=== PATIENT | female | born 1935 | race Caucasian/White ===

== ENCOUNTER → 2020-04-23 15:02 | Outpatient (ROUT) | payer MEDICARE, SELFPAY | PROVIDERS: PCP Internal Medicine; Visit Provider Internal Medicine | DX: N39.0 Urinary tract infection, site not specified (principal) | CPT/HCPCS: 87077; 87086; 87186 ==

== ENCOUNTER → 2023-03-30 10:59 | Outpatient (CLI) | payer MEDICARE, SELFPAY ==
--- NOTE | 2023-03-30 | DI.RAD.S_ITS ---
Bone Density Report Name: ANY BLAKE Age: 87 Sex: Female Ethnicity: White Date of : 1935 Indication: postmenopausal; screening for osteoporosis; parental hip fracture; Referring Provider: GT STERLING Study: Bone densitometry was performed. Exam Date: March 30, 2023 Accession number: [id number] Bone Density: Region BMD T-score Z-score Classification AP Spine(L2, L3, L4) 1.183 0.9 3.9 Normal Femoral Neck (Left) 0.689 -1.4 1.1 Osteopenia Total Hip (Left) 0.750 -1.6 0.8 Osteopenia Femoral Neck (Right) 0.672 -1.6 0.9 Osteopenia Total Hip (Right) 0.743 -1.6 0.7 Osteopenia Total Hip Mean 0.746 -1.6 0.8 Osteopenia World Health Organization criteria for BMD impression classify patients as: Normal (T-score at or above -1.0), Osteopenia (T-score between -1.0 and -2.5), or Osteoporosis (T-score at or below -2.5). 10-year Fracture Risk(1): Major Osteoporotic Fracture 22% Hip Fracture 14% Reported Risk Factors: [place] (), Neck BMD=0.672, BMI=21.0, parental fracture (1) FRAX(R) Version 3.08. Fracture probability calculated for an untreated patient. Fracture probability may be lower if the patient has received treatment. Impression: The patient has low bone mass, based on the Left Total Hip T-score. The patient has an estimated ten-year risk of hip fracture of 14% and an estimated ten-year risk of major fracture of 22%, based on the WHO FRAX algorithm. The patient has risk factors, including: parental hip fracture. Discussion: BONE DENSITY IS LOW AT ONE OR MORE SKELETAL SITES. THE PATIENT'S BMD AND CLINICAL RISK FACTORS CONTRIBUTE TO THIS PATIENT'S HIGH RISK OF FRACTURE. This patient's lowest T-score is low at one or more skeletal sites. It meets the World Health Organization's (WHO) criteria for low bone mass (T-score between -1.0 and -2.5). The patient's 10-year risk of hip fracture and 10 year risk of a major osteoporotic fracture as calculated by FRAX exceeds the threshold where pharmacological therapy is recommended by the National Osteoporosis Foundation (NOF). However, all treatment decisions require clinical judgment and consideration of individual patient factors, including patient preferences, comorbidities, previous drug use, risk factors not captured in the FRAX model (e.g., frailty, falls, vitamin D deficiency, increased bone turnover, interval significant decline in bone density) and possible under or overestimation of fracture risk by FRAX. The patient should follow a healthful lifestyle (good nutrition with adequate calcium and vitamin D, and appropriate weight-bearing exercise). Follow-Up: Consider a repeat BMD and Vertebral Fracture Assessment (VFA) exam in 2 years or sooner if medically necessary, to reassess this patient's status. Reported by: AGGIE MCCULLOUGH M.D. on 03/30/2023 11:53:00 AM.
== END ==
PROVIDERS: PCP Student in an Organized Health Care Education/Training Program; Referring Provider Student in an Organized Health Care Education/Training Program; Visit Provider Student in an Organized Health Care Education/Training Program
DX: M85.852 Other specified disorders of bone density and structure, left thigh (principal); N95.9 Unspecified menopausal and perimenopausal disorder; Z85.3 Personal history of malignant neoplasm of breast
CPT/HCPCS: 77080

== ENCOUNTER 2023-07-26 18:05 | Emergency (ER) | payer MEDICARE, SELFPAY ==
--- NOTE | 2023-07-26 | DI.RAD.S_ITS ---
PROCEDURE: XR SHOULDER LT MIN 2V INDICATIONS: fall TECHNIQUE: 2 views of the shoulder were acquired. COMPARISON: None. FINDINGS: Bones: Suspect 3 part fracture of the humeral surgical neck. Soft tissues: No suspicious soft tissue calcifications. IMPRESSION: Neer 3-part fracture of the humeral surgical neck. Dictated by: Orville Street M.D. on 07/26/2023 at 18:57 Approved by: Orville Street M.D. on 07/26/2023 at 18:58
[2023-07-26 18:15] VITALS: BP 175/79; PULSE 64; RESP 18; TEMP 36.9; O2SAT 100; BMI 21.9
--- NOTE | 2023-07-26 18:21 | DI.RAD.S_ITS ---
PROCEDURE: XR HUMERUS LT 2V INDICATIONS: GLF, pain, deformity TECHNIQUE: 2 views of the humerus were acquired. COMPARISON: None. FINDINGS: Bones: Foreshortened fracture of the humeral neck. Soft tissues: No suspicious soft tissue calcifications. IMPRESSION: Foreshortened fracture of the humeral neck. Dictated by: Orville Street M.D. on 07/26/2023 at 18:56 Approved by: Orville Street M.D. on 07/26/2023 at 18:57
--- NOTE | 2023-07-26 19:01 | ED.GENADULT ---
HPI - General Adult General Chief complaint: Extremity Injury, Upper Stated complaint: L arm/Shoulder, Hummerus, Fall from wheelchair Time Seen by Provider: 07/26/23 18:17 Source: patient and EMS Mode of arrival: EMS History of Present Illness HPI narrative: Patient is an 87-year-old female who is here for evaluation of a left arm/shoulder discomfort. The stated complaint states she fell from a wheelchair however what actually happened is that she was outside trying to feed some birds when she slipped on the snow and ice. She landed on her left shoulder and left hip. She states she did not hit her head. She had no loss of consciousness. She could not get up because of the pain that she was having in her shoulder. Family members came out with a wheelchair or try to help her up and they had difficulty doing so because of her discomfort. She arrived by EMS with a sling in place. Patient is on anticoagulation but again did not hit her head. Related Data Previous Rx's Medication Instructions Recorded hydrocodone 5 mg-acetaminophen 325 1 tab PO Q4-6H PRN pain #20 tabs 07/26/23 mg tablet ondansetron 4 mg disintegrating 4 mg PO Q6H PRN nausea and 07/26/23 tablet vomiting #14 tabs Allergies Allergy/AdvReac Type Severity Reaction Status Date / Time oxycodone [OXYCODONE] AdvReac Unknown VOMITING Verified 07/26/23 19:22 Review of Systems Constitutional Constitutional: Reports system reviewed and no additional complaints, except as documented Musculoskeletal Musculoskeletal: Reports system reviewed and no additional complaints, except as documented Integumentary/Breasts Skin/Breast: Reports system reviewed and no additional complaints, except as documented Neurologic Neurologic: Reports system reviewed and no additional complaints, except as documented Hematologic/Lymphatic On Anticoagulants: Yes Patient History Surgical History (Updated 11/06/17 @ 05:25 by Conversion Provider) Status post appendectomy Status post partial mastectomy Social History Smoking Status: Never smoker Smoking Status: Never smoker alcohol intake frequency: holidays/special occasions only Alcohol type: beer Substance Use Type: does not use Exam Initial Vital Signs Initial Vital Signs: Vital Signs Temperature 98.5 F 07/26/23 18:15 Pulse Rate 64 07/26/23 18:15 Respiratory Rate 18 07/26/23 18:15 Blood Pressure 175/79 H 07/26/23 18:15 Pulse Oximetry 100 07/26/23 18:15 Oxygen Delivery Method Room Air 07/26/23 18:15 Const General: cooperative, comfortable and No ill appearing HENMT Head: normal to inspection and normocephalic Resp Effort & Inspection: normal respiratory effort Cardio Rate: regular rate Pulses: radial pulses present on the left Skin General: no rashes or lesions noted Neuro General: patient alert, patient awake and moves all extremities Extrem Other: Patient has significant discomfort with palpation of the left shoulder. Her left elbow and wrist unremarkable. She also has discomfort with palpation of the left hemipelvis but her left knee and left ankle unremarkable. Right-sided is unremarkable. Procedures Orthopedic Splinting/Casting Injury #1: Side: left Upper Extremity Injury Location: shoulder Upper Extremity Immobilizer: sling/shoulder immobilizer Post splinting neuro exam: intact Post splinting vascular exam: intact Placed by: Nursing Scores Nexus Score for C-Spine Focal Neurologic deficit present: No Midline spinal tenderness present: No Altered level of conciousness present: No Intoxication present: No Distracting Injury Present: No Nexus Criteria for C-spine: 0 Course Orders Ordered: ED Orders 07/26/23 18:21 XR humerus LT 2V Stat 07/26/23 19:08 XR hip w pel if done LT 2V Stat Discontinued Medications Hydrocodone Bitart/Acetaminophen (Hydrocodone/Acet 5/325 Tablet) 1 tab PO NOW ONE Stop: 07/26/23 19:09 Last Admin: 07/26/23 19:35 Dose: 1 tab Documented By: GIACOMO Hydrocodone Bitart/Acetaminophen (Hydrocodone/Acet 5/325 Prepack) 1 bottle MISC DIRECTED ONE Stop: 07/26/23 19:57 Last Admin: 07/26/23 20:16 Dose: 1 bottle Documented By: GIACOMO Ondansetron HCl (Ondansetron 4 Mg Odt Prepack) 1 bottle MISC DIRECTED ONE Stop: 07/26/23 19:57 Last Admin: 07/26/23 20:16 Dose: 1 bottle Documented By: GIACOMO Vital Signs Vital signs: Vital Signs - 8 hr 07/26/23 18:15 07/26/23 19:33 07/26/23 19:38 Temperature 98.5 F Pulse Rate 64 68 64 Pulse Rate [Left Radial] Respiratory Rate 18 16 Blood Pressure 175/79 H 144/69 H Pulse Oximetry 100 97 99 Oxygen Delivery Method Room Air Room Air Room Air 07/26/23 19:46 Temperature Pulse Rate Pulse Rate [Left Radial] 72 Respiratory Rate Blood Pressure Pulse Oximetry Oxygen Delivery Method Medical Decision Making Imaging Data Extremity x-ray #1: Radiologist's Impression: PROCEDURE: XR HUMERUS LT 2V INDICATIONS: GLF, pain, deformity TECHNIQUE: 2 views of the humerus were acquired. COMPARISON: None. FINDINGS: Bones: Foreshortened fracture of the humeral neck. Soft tissues: No suspicious soft tissue calcifications. IMPRESSION: Foreshortened fracture of the humeral neck. Extremity x-ray #2: Radiologist's Impression: PROCEDURE: XR SHOULDER LT MIN 2V INDICATIONS: fall TECHNIQUE: 2 views of the shoulder were acquired. COMPARISON: None. FINDINGS: Bones: Suspect 3 part fracture of the humeral surgical neck. Soft tissues: No suspicious soft tissue calcifications. IMPRESSION: Neer 3-part fracture of the humeral surgical neck. Extremity x-ray #3: Radiologist's Impression: PROCEDURE: XR HIP W PEL IF DONE LT 2V INDICATIONS: L hip pain after fall TECHNIQUE: AP pelvis with lateral view(s) of the left hip(s). COMPARISON: None. FINDINGS: Bones: No fractures or dislocations. Pelvic ring appears intact. No suspicious bony lesions. Soft tissues: The visualized bowel gas pattern is normal. No suspicious soft tissue calcifications. IMPRESSION: No displaced fracture. If there remains a high clinical concern or the patient cannot bear weight, consider cross-sectional imaging to exclude an occult fracture MDM Narrative Medical decision making narrative: Shoulder x-ray does show left proximal humerus fracture. This does correspond to the discomfort that she is having. Left hip x-ray shows no acute pathology either. She was placed in a sling. We discussed the injury that she has. Discussed the expected course of treatment over the next several days. Expect some bruising. Will sent home with pain medication and nausea medicine. No fevers. Will discharge home with instructions to follow up with Orthopedics. They expressed understanding and agreement with plan. Discharge Plan Departure Patient Disposition: Home Clinical Impression: Humerus head fracture Instructions: How to Use a Sling, DI for Shoulder Fracture Activity Restrictions/Additional Instructions: The sling is for her comfort. She can take it off to bathe and also to get dressed. She was going to need follow-up with the orthopedic surgeons. You can contact them at the number provided below. Also contact her primary doctor for a follow-up. Pain medication and nausea medication have been prescribed as needed. Expect significant bruising in the left arm over the next couple days. Return to the emergency department for new symptoms. Prescriptions: New ondansetron 4 mg tablet,disintegrating 4 mg PO Q6H PRN (Reason: nausea and vomiting) Qty: 14 0RF hydrocodone-acetaminophen 5-325 mg tablet 1 tab PO Q4-6H PRN (Reason: pain) Qty: 20 0RF Referrals: Edmundo Ordonez MD [Physician] - Shayy Dean PA-C [Primary Care Provider] - Stand Alone Forms: Patient Portal/API
--- NOTE | 2023-07-26 19:08 | DI.RAD.S_ITS ---
PROCEDURE: XR HIP W PEL IF DONE LT 2V INDICATIONS: L hip pain after fall TECHNIQUE: AP pelvis with lateral view(s) of the left hip(s). COMPARISON: None. FINDINGS: Bones: No fractures or dislocations. Pelvic ring appears intact. No suspicious bony lesions. Soft tissues: The visualized bowel gas pattern is normal. No suspicious soft tissue calcifications. IMPRESSION: No displaced fracture. If there remains a high clinical concern or the patient cannot bear weight, consider cross-sectional imaging to exclude an occult fracture. Dictated by: Orville Street M.D. on 07/26/2023 at 19:46 Approved by: Orville Street M.D. on 07/26/2023 at 19:47
[2023-07-26 19:33] VITALS: BP 144/69; PULSE 68; RESP 16; O2SAT 97
[2023-07-26] MEDS: HYDROCODONE/ACET 5/325 TABLET 1 TAB PO (19:35)
[2023-07-26 19:38] VITALS: PULSE 64; O2SAT 99
[2023-07-26 19:46] VITALS: PULSE 72
[2023-07-26] MEDS: HYDROCODONE/ACET 5/325 PREPACK 1 BOTTLE MISC (20:16)
[2023-07-26] MEDS: ONDANSETRON 4 MG ODT PREPACK 1 BOTTLE MISC (20:16)
== END 2023-07-26 20:39 | disposition home or self-care (01) ==
PROVIDERS: Emergency Provider Emergency Medicine; PCP Student in an Organized Health Care Education/Training Program
DX: S42.302A Unspecified fracture of shaft of humerus, left arm, initial encounter for closed fracture (principal); M25.552 Pain in left hip; W18.30XA Fall on same level, unspecified, initial encounter; Z79.01 Long term (current) use of anticoagulants
CPT/HCPCS: 73030; 73060; 73502; 99283